=== PATIENT | female | born 1975 | race Caucasian/White ===

== ENCOUNTER 2020-03-25 19:02 | Emergency (ER) | payer SELFPAY ==
[~2020-03-25] VITALS: Ht 157.5 cm; Wt 95.0 kg
--- NOTE | 2020-03-25 19:02 | NUR ---
BIBA TAKEN TO BED 2
--- NOTE | 2020-03-25 19:11 | NUR ---
MD DING AT BEDSIDE WITH PT
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
[2020-03-25 19:15] VITALS: BP 162/89
[2020-03-25] MEDS ORDERED: NACL 0.9% 1,000 ML IV ONE (19:15)
[2020-03-25] MEDS ORDERED: MORPHINE SULFATE 4 MG/ML SYR IVP ONE ×2 (19:15→22:10)
[2020-03-25] MEDS ORDERED: ONDANSETRON 4 MG/2 ML VIAL IVP ONE (19:15)
--- NOTE | 2020-03-25 19:35 | NUR ---
[employer] AT BEDSIDE SPEAKING WITH PT.
[2020-03-25 19:50] LABS: BASOPHILS # (AUTO) 0.1 K/uL (0.00-0.22); BASOPHILS % (AUTO) 1.3 % (0.0-2.0); EOSINOPHILS # (AUTO) 0.5 K/uL (0-0.4); EOSINOPHILS % (AUTO) 5.1 % (0.0-4.0); HEMATOCRIT 28.1 % (36-48); HEMOGLOBIN 8.6 g/dL (12.0-16.0); LYMPHOCYTES # (AUTO) 2.7 K/uL (2.5-16.5); MEAN CORPUSCULAR HEMOGLOBIN 19 pg (27-31); MEAN CORPUSCULAR HGB CONC 31 g/dL (33-37); MEAN CORPUSCULAR VOLUME 63.2 fL (80-94); MONOCYTES # (AUTO) 0.5 K/uL (0.8-1.0); MONOCYTES % (AUTO) 4.8 % (1.7-9.3); NEUTROPHILS # (AUTO) 6.2 K/uL (1.8-7.7); NEUTROPHILS % (AUTO) 61.8 % (42.2-75.2); PLATELET COUNT (AUTO) 249 K/uL (140-450); RED BLOOD CELL COUNT(AUTO) 4.44 MIL/uL (4.20-5.40); RED CELL DISTRIBUTION WIDTH 20.2 % (11.6-13.7)
--- NOTE | 2020-03-25 19:50 | NUR ---
SPOKE TO PT'S FAMILY IN WAITING ROOM TO UPDATE ON PT'S STATUS
--- NOTE | 2020-03-25 19:51 | NUR ---
PT RATES PAIN 10/20, MD DING AWARE.
[2020-03-25 19:58] LABS: ANION GAP 16.9 (8-16); CARBON DIOXIDE 22.8 mmol/L (21-32); CREATININE 0.7 mg/dL (0.6-1.3); POTASSIUM 3.7 mmol/L (3.5-5.1)
--- NOTE | 2020-03-25 20:10 | NUR ---
PT TAKEN TO CT VIA [facility]
--- NOTE | 2020-03-25 21:10 | NUR ---
PT RETURNED FROM CT VIA [facility]
--- NOTE | 2020-03-25 21:45 | NUR ---
PT C/O INCREASE IN NECK PAIN 12/20, WILL NOTIFY MD DING
--- NOTE | 2020-03-25 22:15 | NUR ---
MD DING AT BEDSIDE, REMOVED CERVICAL COLLAR
[2020-03-25 23:00] VITALS: BP 100/46
--- NOTE | 2020-03-25 23:01 | NUR ---
Patient discharged with v/s stable. Written and verbal after care instructions given and explained. Patient alert, oriented and verbalized understanding of instructions. Ambulatory with steady gait. All questions addressed prior to discharge. ID band removed. Patient advised to follow up with PMD. Rx of FLEXERIL AND NAPROXEN given. Patient educated on indication of medication including possible reaction and side effects. Opportunity to ask questions provided and answered.
== END 2020-03-25 23:01 | disposition home or self-care (01) ==
LOC: MED 19:02
DX: S16.1XXA Strain of muscle, fascia and tendon at neck level, initial encounter (principal); M79.10 Myalgia, unspecified site; Z98.890 Other specified postprocedural states; V89.2XXA Person injured in unspecified motor-vehicle accident, traffic, initial encounter; Y93.89 Activity, other specified; Y92.89 Other specified places as the place of occurrence of the external cause; Y99.8 Other external cause status
CPT/HCPCS: 36415; 70450; 71045; 72125; 72128; 72131; 80048; 84703; 85025; 96361; 96374; 96375; 96376; 99285; J2270; J2405; J7030